=== PATIENT | male | born 1975 | race Caucasian/White ===

== ENCOUNTER 2016-07-13 20:21 | Emergency (ER) | payer OTHER ==
[~2016-07-13] VITALS: Ht 165.1 cm; Wt 56.0 kg
[2016-07-13 20:23] VITALS: Ht 165.1 cm; Wt 56.0 kg
[2016-07-13] MEDS ORDERED: ONDANSETRON 4 MG INJ IV STA (21:36)
[2016-07-13] MEDS ORDERED: ACETAMINOPHEN 500 MG TAB PO STA (21:36)
[2016-07-13] MEDS ORDERED: morphine 2 MG INJ IV STA (21:36)
[2016-07-13] MEDS ORDERED: SOD CHLORIDE 0.9% 1,000 ML IV STA (21:36)
[2016-07-13] MEDS ORDERED: TRUV PO (22:11)
[2016-07-13] MEDS ORDERED: NORV100 PO (22:11)
--- NOTE | 2016-07-13 22:12 | ERD ---
ER Documentation Chief Complaint Date/Time DATE: 07/13/16 TIME: 22:10 Chief Complaint abd pain x 2 days HPI 40-year-old male presents to emergency department for complaints of right sided abdominal pain started 2 days ago. Patient is complaining of right sided abdominal pain, sharp pain, 6/10 scale, accompanied with nausea and vomiting. Patient denies any diarrhea or constipation. Patient denies any blood in his or blood in the vomit. Patient denies any black stool. Patient denies hematuria or dysuria. Patient is complaining of fever today. Patient denies any sick contacts. Patient did not take any medications to help with symptoms. Patient has history of HIV. ROS All systems reviewed and are negative except as per history of present illness. Medications Home Meds Active Scripts Ondansetron (Ondansetron Odt) 4 Mg Tab.rapdis, 4 MG PO Q8 Y for NAUSEA AND/OR VOMITING, #30 TAB Prov:BRYNN ABREU [employer] 07/14/16 Ondansetron (Ondansetron Odt) 4 Mg Tab.rapdis, 4 MG PO Q8 Y for NAUSEA AND/OR VOMITING, #30 TAB Prov:BRYNN ABREU [employer] 07/14/16 Ciprofloxacin Hcl* (Ciprofloxacin Hcl*) 500 Mg Tablet, 500 MG PO BID for 10 Days , TAB Prov:BRYNN ABREU NP 07/14/16 Tamsulosin Hcl* (Flomax*) 0.4 Mg Cap.er.24h, 0.4 MG PO QPM, #30 CAP Prov:BRYNN ABREU NP 07/14/16 Hydrocodone/Acetaminophen ([place] 5-325 Tablet) 1 Each Tablet, 1 TAB PO Q6H Y for SEVERE PAIN LEVEL 7-10, #20 TAB Prov:BRYNN ABREU [employer] 07/14/16 Reported Medications Emtricitabine-Tenofovir* (Truvada*) Unknown Strength Tab, PO DAILY, TAB 07/13/16 Ritonavir* (Norvir*) Unknown Strength Capsule, PO DAILY, CAP 07/13/16 Allergies Allergies: Coded Allergies: No Known Drug Allergies (Verified Allergy, Unknown, 07/13/16) PMhx/Soc History of Surgery: Yes (RT ARM) Anesthesia Reaction: No Hx Neurological Disorder: No Hx Respiratory Disorders: No Hx Cardiac Disorders: No Hx Psychiatric Problems: No Hx Miscellaneous Medical Probl: Yes (HIV) Hx Alcohol Use: No Hx Substance Use: Yes (MARIJUANA) Hx Tobacco Use: No Smoking Status: Never smoker FmHx Family History: No coronary disease, No diabetes, No other Physical Exam Vitals Vital Signs Date Time Temp Pulse Resp B/P Pulse Ox O2 Delivery O2 Flow Rate FiO2 07/14/16 02:13 98.1 89 16 105/64 100 Room Air 07/13/16 20:23 100.7 130 20 113/74 98 Physical Exam GENERAL: The patient is well developed and appropriate for usual state of health, in no apparent distress. CHEST: Clear to auscultation bilaterally. There are no rales, wheezes or rhonchi. HEART: Regular rate and rhythm. No murmurs, clicks, rubs or gallops. No S3 or S4. ABDOMEN: Soft, right-sided abdominal tenderness noted. Good bowel sounds. No rebound or guarding. No gross peritonitis. No gross organomegaly or masses. BACK: No midline or flank tenderness. EXTREMITIES: Equal pulses bilaterally. There is no peripheral clubbing, cyanosis or edema. No focal swelling or erythema. Full range of motion. Grossly neurovascularly intact. NEURO: Alert and oriented. Cranial nerves 2-12 intact. Motor strength in all 4 extremities with 5/5 strength. Sensation grossly intact. Normal speech and gait. SKIN: There is no apparent rash or petechia. The skin is warm and dry. HEMATOLOGIC AND LYMPHATIC: There is no evidence of excessive bruising or lymphedema. No gross cervical, axillary, or inguinal lymphadenopathy. Result Diagram: 07/13/16221707/13/162217 Results 24 hrs Laboratory Tests Test 07/13/16 00:18 07/13/16 22:18 Urine Bacteria OCCASIONAL Urine Bilirubin NEGATIVE Urine Calcium Oxalate Crystals OCCASIONAL Urine Clarity SLIGHTLY CLOUDY Urine Color YELLOW Urine Glucose NEGATIVE% Urine Hemoglobin 3+ Urine Ketones NEGATIVE Urine Leukocyte Esterase 1+ Urine Microscopic RBC >200/HPF Urine Microscopic WBC 25-50/HPF Urine Nitrite NEGATIVE Urine Specific [place] >=1.030 Urine Squamous Epithelial Cells FEW Urine Total Protein TRACE Urine Urobilinogen 1.0 E.U./dL Urine pH 6.0 Alanine Aminotransferase (ALT/SGPT) 29IU/L Albumin 3.4g/dl Albumin/Globulin Ratio 0.69 Alkaline Phosphatase 160IU/L Anion Gap 15 Aspartate Amino Transf (AST/SGOT) 29IU/L Basophils # 0.010^3/ul Basophils % 0.4% Blood Urea Nitrogen 13mg/dl Calcium Level 9.1mg/dl Carbon Dioxide Level 30mmol/L Chloride Level 102mmol/L Creatinine 0.85mg/dl Direct Bilirubin 0.00mg/dl Eosinophils # 0.210^3/ul Eosinophils % 3.6% Globulin 4.90g/dl Glucose Level 111mg/dl Hematocrit 41.2% Hemoglobin 13.8g/dl Indirect Bilirubin 0.2mg/dl Lipase 109U/L Lymphocytes # 1.210^3/ul Lymphocytes % 24.1% Mean Corpuscular Hemoglobin 29.6pg Mean Corpuscular Hemoglobin Concent 33.5g/dl Mean Corpuscular Volume 88.4fl Mean Platelet Volume 9.3fl Monocytes # 0.610^3/ul Monocytes % 12.3% Neutrophils # 2.810^3/ul Neutrophils % 59.4% Nucleated Red Blood Cells # 0.010^3/ul Nucleated Red Blood Cells % 0.0/100WBC Platelet Count 23842^3/UL Potassium Level 3.9mmol/L Red Blood Count 4.6610^6/ul Red Cell Distribution Width 13.2% Sodium Level 143mmol/L Total Bilirubin 0.2mg/dl Total Protein 8.3g/dl White Blood Count 4.810^3/ul Current Medications Medications (Trade) Dose Ordered Sig/Mayelin Route PRN Reason Start Time Stop Time Status Last Admin Dose Admin Sodium Chloride (NS) 1,000 ml @ 1,000 mls/hr Q1H STAT IV 07/13/16 21:36 07/13/16 22:35 DC 07/13/16 22:40 Morphine Sulfate (morphine) 2 mg ONCE STAT IV 07/13/16 21:36 07/13/16 21:37 DC 07/13/16 22:42 Ondansetron HCl (Zofran Inj) 4 mg ONCE STAT IV 07/13/16 21:36 07/13/16 21:37 DC 07/13/16 22:41 Acetaminophen 500 mg 500 mg ONCE STAT PO 07/13/16 21:36 07/13/16 21:37 DC 07/13/16 22:41 Ceftriaxone Sodium (Rocephin) 50 ml @ 100 mls/hr ONCE ONCE IVPB 07/14/16 01:30 07/14/16 01:59 DC 07/14/16 01:58 Normal saline IV bolus was given here in emergency department for rehydration, patient tolerated IV fluids.Patient was given medication for pain here in emergency department, after treatment, patient verbalized feeling much better. Patient's pain is improved. Patient was given Zofran here in the emergency department. After treatment, patient was able to tolerate po fluids here in the emergency department without any vomiting. There is no signs and symptoms of dehydration. PROCEDURE: CT Abdomen and Pelvis without contrast. CLINICAL INDICATION: Abdominal pain for 2 days. TECHNIQUE: A CT scan of the abdomen and pelvis was performed without intravenous contrast. Coronal and sagittal reformatted images were generated. Images were reviewed on a high-resolution PACS workstation. CTDIvol: 7.13 mGy. DLP: 346.83 mGy-cm. One or more of the following dose reduction techniques were used: - Automated exposure control. - Adjustment of the mA and/or kV according to patient size. - Use of iterative reconstruction technique. COMPARISON: None. FINDINGS: There is minimal scarring or atelectasis in the lingula. Evaluation of the abdominal and pelvic viscera is limited by the lack of oral and intravenous contrast. The liver is unremarkable. There are stones in the gallbladder. The common bile duct is not dilated. The spleen is not enlarged. No pancreatic lesion is identified and there is no pancreatic ductal dilatation. The adrenal glands are unremarkable. The kidneys are normal in size. There is mild to moderate right hydronephrosis secondary to a 5 mm obstructing stone in the proximal right ureter. Minimal right perinephric fat stranding is consistent with obstructive uropathy. No left hydronephrosis is seen. The small and large bowel are normal in caliber. There is no bowel wall thickening. The appendix is normal. The urinary bladder is unremarkable. The pelvic organs are within normal limits. No lymphadenopathy is identified. There is no ascites. No pneumoperitoneum is seen. There are no arterial calcifications. No suspicious osseous lesion is idenitified. IMPRESSION: 1. Mild to moderate right hydronephrosis secondary to a 5 mm obstructing stone in the proximal right ureter. 2. Normal appendix. 3. Cholelithiasis. RPTAT: HTAR .Akira Aguiar MD, MD Date Time Electronically viewed and signed by .Akira Aguiar MD, MD on 07/13/2016 22:40 .R/ CC: BRYNN ABREU [employer] Procedures/MDM Attending physician, Dr. Mccray, evaluated patient's laboratory test results, CT scan abdomen and pelvis results, he recommended outpatient treatment, IV Rocephin was given here in emergency department for treatment of pyelonephritis , patient was advised to see urology specialist, patient management for pyelonephritis is his recommendation at this time with strict return to the ER precautions. This was explained to the patient, verbalized understanding. Medical Decision Making: Patient's symptoms of pain was at his consistent with biliary colic, also be from hydronephrosis, renal colic from an obstructive stone. No symptoms of any septic stone. No renal insufficiency noted. Liver function tests are normal. LFTs is normal. No symptoms of choledocholithiasis. Patient has pyelonephritis which may be causing the fever, as per discussion with my attending physician, Dr. Mccray, since patient's vital signs are normal, no symptoms of any sepsis after treatment here in emergency department, patient management is appropriate at this time. Patient has HIV but is currently taking medication, patient appears well and is hemodynamically stable. Strict return to ER precautions was advised the patient for any worsening symptoms. There is low suspicion for abdominal emergencies at this time. Patients abdominal exam is normal at this time. Patients radiology exam does not show any abdominal emergencies at this time. There is low suspicion for appendicitis, cholecystitis, abdominal aortic aneurysms or peritonitis at this time. There is low suspicion for sepsis. Patient appears well and is hemodynamically stable. Disposition: Home. Condition: Stable Prescription [place], Zofran, Pyridium, tamsulosin, ciprofloxacin Instructions: Patient is advised to take medications as prescribed. Patient is advised to rest, increase fluid intake and do see urology specialist, take medications as prescribed.. Patient is advised that if symptoms are worse, severe abdominal pain, uncontrolled vomiting, high fever, severe flank pain, worst signs and symptoms, to return to the emergency department immediately. Otherwise, patient can follow up with primary care doctor in 5-7 days. Departure Diagnosis: Primary Impression: Renal colic on right side Additional Impressions: Biliary colic Pyelonephritis Condition: Stable Patient Instructions: Biliary Colic With Gallstone (Confirmed), Kidney Stone W / Colic, Pyelonephritis Additional Instructions: Patient is advised to take medications as prescribed. Patient is advised to rest , increase fluid intake and do see urology specialist, take medications as prescribed.. Patient is advised that if symptoms are worse, severe abdominal pain, uncontrolled vomiting, high fever, severe flank pain, worst signs and symptoms, to return to the emergency department immediately. Otherwise, patient can follow up with primary care doctor in 5-7 days. BRYNN ABREU NP Jul 13, 2016 22:12
[2016-07-13 22:28] LABS: ADD SCAN DIFF NO
[2016-07-13 22:32] LABS: BASOPHILS % 0.4 % (0.0-2.0); EOSINOPHILS # 0.2 10^3/ul (0.0-0.5); EOSINOPHILS % 3.6 % (0.0-7.0); HEMATOCRIT 41.2 % (42.0-52.0); HEMOGLOBIN 13.8 g/dl (14.0-18.0); LYMPHOCYTES # 1.2 10^3/ul (0.8-2.9); LYMPHOCYTES % 24.1 % (15.0-51.0); MEAN CORPUSCULAR HEMOGLOBIN 29.6 pg (29.0-33.0); MEAN CORPUSCULAR HGB CONC 33.5 g/dl (32.0-37.0); MEAN CORPUSCULAR VOLUME 88.4 fl (82.0-101.0); MEAN PLATELET VOLUME 9.3 fl (7.4-10.4); MONOCYTE # 0.6 10^3/ul (0.3-0.9); MONOCYTES % 12.3 % (0.0-11.0); NEUTROPHIL # 2.8 10^3/ul (1.6-7.5); NEUTROPHILS % 59.4 % (39.0-77.0); PLATELET COUNT 163 10^3/UL (140-415); RED BLOOD COUNT 4.66 10^6/ul (4.70-6.10); RED CELL DISTRIBUTION WIDTH 13.2 % (11.5-14.5); WHITE BLOOD COUNT 4.8 10^3/ul (4.8-10.8)
--- NOTE | 2016-07-13 22:40 | RADRPT ---
PROCEDURE: CT Abdomen and Pelvis without contrast. CLINICAL INDICATION: Abdominal pain for 2 days. TECHNIQUE: A CT scan of the abdomen and pelvis was performed without intravenous contrast. Owen l and sagittal reformatted images were generated. Images were reviewed on a high-resolution PACS wor kstation. CTDIvol: 7.13 mGy. DLP: 346.83 mGy-cm. One or more of the following dose reduction techniques were used: - Automated exposure control. - Adjustment of the mA and/or kV according to patient size. - Use of iterative reconstruction technique. COMPARISON: None. FINDINGS: There is minimal scarring or atelectasis in the lingula. Evaluation of the abdominal and pelvic viscera is limited by the lack of oral and intravenous contra st. The liver is unremarkable. There are stones in the gallbladder. The common bile duct is not dilated . The spleen is not enlarged. No pancreatic lesion is identified and there is no pancreatic ductal d ilatation. The adrenal glands are unremarkable. The kidneys are normal in size. There is mild to moderate right hydronephrosis secondary to a 5 mm o bstructing stone in the proximal right ureter. Minimal right perinephric fat stranding is consistent with obstructive uropathy. No left hydronephrosis is seen. The small and large bowel are normal in caliber. There is no bowel wall thickening. The appendix is normal. The urinary bladder is unremarkable. The pelvic organs are within normal limits. No lymphadenopathy is identified. There is no ascites. No pneumoperitoneum is seen. There are no art erial calcifications. No suspicious osseous lesion is idenitified. IMPRESSION: 1. Mild to moderate right hydronephrosis secondary to a 5 mm obstructing stone in the proximal righ t ureter. 2. Normal appendix. 3. Cholelithiasis. RPTAT: HTAR .Akira Aguiar MD, MD Date Time Electronically viewed and signed by .Akira Aguiar MD, on 07/13/2016 22:40 .R/
[2016-07-13 22:48] LABS: ALBUMIN 3.4 g/dl (3.3-4.9)
[2016-07-13 22:49] LABS: POTASSIUM 3.9 mmol/L (3.5-5.1)
[2016-07-13 22:51] LABS: ALBUMIN/GLOBULIN RATIO 0.69; BILIRUBIN,INDIRECT 0.2 mg/dl (0-1.1); BILIRUBIN,TOTAL 0.2 mg/dl (0.2-1.3); CREATININE 0.85 mg/dl (0.61-1.24); TOTAL PROTEIN 8.3 g/dl (6.1-8.1)
[2016-07-13 22:52] LABS: CALCIUM 9.1 mg/dl (8.4-10.2)
[2016-07-14 00:54] LABS: ADD UMIC YES; URINE BILIRUBIN (Dip) NEGATIVE (NEGATIVE); URINE BLOOD (Dip) 3+ (NEGATIVE); URINE COLOR YELLOW (YELLOW); URINE GLUCOSE (Dip) NEGATIVE (NEGATIVE); URINE KETONES (Dip) NEGATIVE (NEGATIVE); URINE LEUKOCYTE ESTERASE (Dip) 1+ (NEGATIVE); URINE NITRITE (Dip) NEGATIVE (NEGATIVE); URINE TOTAL PROTEIN (Dip) TRACE (NEGATIVE); URINE UROBILINOGEN (Dip) 1.0 E.U./dL (0.1-1.0)
[2016-07-14] MEDS ORDERED: CEFTRIAXONE 1 GM/50 ML (PMX) 50 ML IVPB ONE (01:30)
[2016-07-14] MEDS ORDERED: TAMS-14 PO (01:39)
[2016-07-14] MEDS ORDERED: ONDA4TAB14 PO (01:39)
[2016-07-14] MEDS ORDERED: HYDR-906 PO (01:39)
[2016-07-14] MEDS ORDERED: CIPR500T4 PO (01:39)
[2016-07-14 02:03] LABS: SQUAMOUS EPITHELIAL CELL,UR FEW; URINE RBCS >200 /HPF (0)
[2016-07-14 02:04] LABS: BACTERIA,URINE OCCASIONAL
[2016-07-14 02:13] VITALS: BP 105/64; PULSE 89; RESP 16; TEMP 98.1
== END 2016-07-14 02:33 | disposition home or self-care (01) ==
LOC: FTE 20:21
DX: N23 Unspecified renal colic (principal); K80.50 Calculus of bile duct without cholangitis or cholecystitis without obstruction; N12 Tubulo-interstitial nephritis, not specified as acute or chronic; R11.2 Nausea with vomiting, unspecified
CPT/HCPCS: 36415; 74176; 80053; 81001; 81003; 83690; 85025; 87086; 96374; 96375; J0696; J2270; J2405; J7030; Z7502; Z7610

== ENCOUNTER 2016-07-18 18:09 | Emergency (ER) | payer OTHER ==
[~2016-07-18] VITALS: Ht 165.1 cm; Wt 57.0 kg
[~2016-07-18 18:09] MED LIST: CIPR500T4 PO; HYDR-906 PO; NORV100 PO; ONDA4TAB14 PO; TAMS-14 PO; TRUV PO
[2016-07-18 18:15] VITALS: Ht 165.1 cm; Wt 57.0 kg
[2016-07-18] MEDS ORDERED: ONDANSETRON 4 MG INJ IV STA (18:30)
[2016-07-18] MEDS ORDERED: morphine 2 MG INJ IV STA (18:30)
[2016-07-18] MEDS ORDERED: SOD CHLORIDE 0.9% 1,000 ML IV STA (18:30)
--- NOTE | 2016-07-18 18:40 | ERD ---
ER Documentation Chief Complaint Date/Time DATE: 07/18/16 TIME: 18:38 Chief Complaint right flank pain x 6 hours. hx of kidney stone HPI 40-year-old male presents here in emergency department for complaints of right flank pain 6 hours prior to arrival. Patient was seen here 3 days ago, was diagnosed to have a obstructed stone, patient had pyelonephritis with it, the fever has resolved, patient denies any other symptoms. Patient denies any nausea or vomiting. Patient complains of pain, sharp pain, 8/10 scale, accompanying the symptoms. Patient denies any gross hematuria. Patient took some [place] for pain with only mild relief. Patient to call medications given to him. ROS All systems reviewed and are negative except as per history of present illness. Medications Home Meds Active Scripts Oxycodone HCl/Acetaminophen (Percocet 5-325 mg Tablet) 1 Each Tablet, 1 EACH PO Q6 Y for SEVERE PAIN LEVEL 7-10, #7 TAB Prov:BRYNN ABREU NP 07/18/16 Polyethylene Glycol* (Miralax*) 17 Gm Powd.pack, 17 GM PO DAILY, #7 Prov:BRYNN ABREU NP 07/18/16 Docusate Sodium* (Colace*) 100 Mg Capsule, 100 MG PO TID, #30 CAP Prov:BRYNN ABREU NP 07/18/16 Ondansetron (Ondansetron Odt) 4 Mg Tab.rapdis, 4 MG PO Q8 Y for NAUSEA AND/OR VOMITING, #30 TAB Prov:BRYNN ABREU NP 07/14/16 Ondansetron (Ondansetron Odt) 4 Mg Tab.rapdis, 4 MG PO Q8 Y for NAUSEA AND/OR VOMITING, #30 TAB Prov:BRYNN ABREU NP 07/14/16 Ciprofloxacin Hcl* (Ciprofloxacin Hcl*) 500 Mg Tablet, 500 MG PO BID for 10 Days , TAB Prov:BRYNN ABREU NP 07/14/16 Tamsulosin Hcl* (Flomax*) 0.4 Mg Cap.er.24h, 0.4 MG PO QPM, #30 CAP Prov:BRYNN ABREU NP 07/14/16 Hydrocodone/Acetaminophen ([place] 5-325 Tablet) 1 Each Tablet, 1 TAB PO Q6H Y for SEVERE PAIN LEVEL 7-10, #20 TAB Prov:BRYNN ABREU MENDIETA TNevaeh VILLEGAS 07/14/16 Reported Medications Emtricitabine-Tenofovir* (Truvada*) Unknown Strength Tab, PO DAILY, TAB 07/13/16 Ritonavir* (Norvir*) Unknown Strength Capsule, PO DAILY, CAP 07/13/16 Allergies Allergies: Coded Allergies: No Known Drug Allergies (Verified Allergy, Unknown, 07/18/16) PMhx/Soc History of Surgery: Yes (RT ARM) Anesthesia Reaction: No Hx Neurological Disorder: No Hx Respiratory Disorders: No Hx Cardiac Disorders: No Hx Psychiatric Problems: No Hx Miscellaneous Medical Probl: Yes (HIV) Hx Alcohol Use: No Hx Substance Use: Yes (MARIJUANA) Hx Tobacco Use: No FmHx Family History: No coronary disease, No diabetes, No other Physical Exam Vitals Vital Signs Date Time Temp Pulse Resp B/P Pulse Ox O2 Delivery O2 Flow Rate FiO2 07/18/16 18:15 97.9 81 20 124/73 100 Physical Exam GENERAL: The patient is well developed and appropriate for usual state of health, in no apparent distress. CHEST: Clear to auscultation bilaterally. There are no rales, wheezes or rhonchi. HEART: Regular rate and rhythm. No murmurs, clicks, rubs or gallops. No S3 or S4. ABDOMEN: Soft, nontender and nondistended. Good bowel sounds. No rebound or guarding. No gross peritonitis. No gross organomegaly or masses. No Trujillo sign or McBurney point tenderness. BACK: No midline or flank tenderness. EXTREMITIES: Equal pulses bilaterally. There is no peripheral clubbing, cyanosis or edema. No focal swelling or erythema. Full range of motion. Grossly neurovascularly intact. NEURO: Alert and oriented. Cranial nerves 2-12 intact. Motor strength in all 4 extremities with 5/5 strength. Sensation grossly intact. Normal speech and gait. SKIN: There is no apparent rash or petechia. The skin is warm and dry. HEMATOLOGIC AND LYMPHATIC: There is no evidence of excessive bruising or lymphedema. No gross cervical, axillary, or inguinal lymphadenopathy. Result Diagram: 07/18/16 1840 07/18/161844 Results 24 hrs Laboratory Tests Test 07/18/16 18:45 07/18/16 19:04 07/18/16 21:00 Alanine Aminotransferase (ALT/SGPT) 21IU/L Albumin 3.7g/dl Albumin/Globulin Ratio 0.71 Alkaline Phosphatase 162IU/L Anion Gap 18 Aspartate Amino Transf (AST/SGOT) 35IU/L Basophils # 0.010^3/ul Basophils % 0.4% Blood Urea Nitrogen 11mg/dl Calcium Level 9.3mg/dl Carbon Dioxide Level 25mmol/L Chloride Level 102mmol/L Creatinine 0.80mg/dl Direct Bilirubin 0.00mg/dl Eosinophils # 0.010^3/ul Eosinophils % 0.9% Globulin 5.20g/dl Glucose Level 129mg/dl Hematocrit 44.0% Hemoglobin 14.6g/dl Indirect Bilirubin 0.2mg/dl Lactic Acid Level 4.0mmol/L 1.4mmol/L Lipase 57U/L Lymphocytes # 0.810^3/ul Lymphocytes % 17.9% Mean Corpuscular Hemoglobin 29.3pg Mean Corpuscular Hemoglobin Concent 33.2g/dl Mean Corpuscular Volume 88.2fl Mean Platelet Volume 9.2fl Monocytes # 0.510^3/ul Monocytes % 10.3% Neutrophils # 3.210^3/ul Neutrophils % 70.3% Nucleated Red Blood Cells # 0.010^3/ul Nucleated Red Blood Cells % 0.0/100WBC Platelet Count 81162^3/UL Potassium Level 4.4mmol/L Red Blood Count 4.9910^6/ul Red Cell Distribution Width 13.2% Sodium Level 141mmol/L Total Bilirubin 0.2mg/dl Total Protein 8.9g/dl White Blood Count 4.510^3/ul Urine Amorphous Phosphates MODERATE Urine Bacteria FEW Urine Bilirubin NEGATIVE Urine Clarity SLIGHTLY CLOUDY Urine Color YELLOW Urine Glucose NEGATIVE% Urine Hemoglobin 3+ Urine Ketones NEGATIVE Urine Leukocyte Esterase NEGATIVE Urine Microscopic RBC >200/HPF Urine Microscopic WBC 2-5/HPF Urine Nitrite NEGATIVE Urine Specific [place] 1.025 Urine Squamous Epithelial Cells FEW Urine Total Protein NEGATIVE Urine Urobilinogen 1.0 E.U./dL Urine pH 8.0 Current Medications Medications (Trade) Dose Ordered Sig/Mayelin Route PRN Reason Start Time Stop Time Status Last Admin Dose Admin Sodium Chloride (NS) 1,000 ml @ 1,000 mls/hr Q1H STAT IV 07/18/16 18:30 07/18/16 19:29 DC 07/18/16 18:42 Morphine Sulfate (morphine) 2 mg ONCE STAT IV 07/18/16 18:30 07/18/16 18:31 DC 07/18/16 18:42 Ondansetron HCl 4 mg 4 mg ONCE STAT IV 07/18/16 18:30 07/18/16 18:31 DC 07/18/16 18:42 Sodium Chloride (NS) 2,000 ml @ 1,000 mls/hr Q2H ONCE IV 07/18/16 20:00 07/18/16 21:59 DC 07/18/16 20:07 Hydromorphone HCl (Dilaudid) 1 mg ONCE STAT IV 07/18/16 20:03 07/18/16 20:05 DC 07/18/16 20:09 Patient was given medication for pain here in emergency department, after treatment, patient verbalized feeling much better. Patient's pain is improved.Normal saline IV bolus was given here in emergency department for rehydration, patient tolerated IV fluids. PROCEDURE: CT Abdomen and Pelvis without contrast CLINICAL INDICATION: Right upper quadrant pain TECHNIQUE: Transaxial images were obtained through the abdomen and pelvis on a multi-slice scanner without the intravenous contrast administration. No oral contrast had previously been given. Sagittal and coronal re-formations were subsequently reconstructed. One or more of the following dose reduction techniques were used: - Automated exposure control. - Adjustment of the mA and/or kV according to patient size. - Use of iterative reconstruction technique. Radiation dose: CTDIvol = 7.13 mGy; DLP = 346.83 mGy-cm. COMPARISON: 07/13/2016 FINDINGS: Lung bases: The visualized lung bases appear unremarkable. Liver: Normal in size and in attenuation. There is no focal lesion. Gallbladder: There is cholelithiasis but the gallbladder wall is not thickened. Bile ducts: The intra and extrahepatic bile ducts are normal in caliber. Pancreas: Appears normal with no mass or inflammation evident. Spleen: Normal in size with no focal lesion. Adrenals: A 2.4 x 0.6 cm left adrenal nodule is identified measuring approximately 13 HU in density. Kidneys, ureters and bladder: A 9 x 6 x 5 mm ureterolith is seen in the distal right ureter approximately tissues 2.5 cm superior to the right ureterovesicular junction and is associated with moderate right hydronephrosis/ hydroureter. No ureterolith or mass is evident. The left kidney, the left ureter, and the bladder appear unremarkable. Reproductive organs: The prostate is not enlarged. Stomach and bowel: The stomach appears unremarkable. The bowel gas pattern reflects an ileus. Substantial stool seen in the colon but there is no evidence of bowel obstruction or inflammation. Appendix: The vermiform appendix is not discretely identified. Peritoneum: No free intraperitoneal fluid or air is identified. Aorta: Normal in caliber with no aneurysmal dilatation. IVC: Unremarkable. Lymph nodes: No pathologically enlarged nodes are identified. Osseous structures: The osseous elements appear intact. IMPRESSION: 1. 9 x 6 x 5 mm distal right ureterolith approximately 2.5 cm superior to the right ureterovesicular junction, associated with moderate right hydronephrosis/ hydroureter. The left kidney, left ureter, and the bladder appear unremarkable. 2. Ileus with abundant stool seen within the colon without evidence of bowel obstruction or inflammation. The vermiform appendix is not discretely identified. 3. Gallbladder distension with cholelithiasis, not associated with gallbladder wall thickening, bile duct dilatation or pancreatic pathology. 4. No free fluid is identified. Physician Rafita Date Time Electronically viewed and signed by Physician Rafita on 07/18/2016 19:58 RH/ CC: BRYNN ABREU VP & GENERAL COUNSEL The case with my attending physician, Dr. Jay, recommended a repeat lactic acid within 2 hours, this was done, also patient was given a fluid bolus here in emergency department, the lactic acid was 1.4, normal, admission unnecessary at this time. No symptoms of any sepsis, patient's left her test results does not show any sepsis, no leukocytosis no bandemia no fever, not tachycardic, patient appears well and is hemodynamically stable. Patient's symptoms most likely is consistent with renal colic. This case with my attending physician, , appropriate for discharge, with strict return to ER precautions for fever, tachycardia, any other worsening symptoms Procedures/MDM Medical Decision Making: Patient's symptoms consistent with renal colic. A repeat lactic acid was done within 2 hours after first draw, it was lower and normal, 1.4, patient is appropriate for discharge, other laboratory test results does not show any sepsis, urinalysis negative for any infection. No symptoms of any perinephric abscess. Patient's previous stone noted to be in the proximal ureter is now the ureterovesicular junction. There is low suspicion for abdominal emergencies at this time. Patients abdominal exam is normal at this time. Patients radiology exam does not show any abdominal emergencies at this time. There is low suspicion for appendicitis, cholecystitis , abdominal aortic aneurysms or peritonitis at this time. There is low suspicion for sepsis. Patient appears well and is hemodynamically stable. Disposition: Home. Condition: Stable Prescription Percocet, Colace and MiraLAX Instructions: Patient is advised to take medications as prescribed. Patient is advised to rest, increase fluid intake and do a urologist specialist. Patient is advised that if symptoms are worse, severe abdominal pain, uncontrolled vomiting, high fever, severe flank pain, worst signs and symptoms, to return to the emergency department immediately. Otherwise, patient can follow up with primary care doctor in 5-7 days. Departure Diagnosis: Primary Impression: Renal colic on right side Condition: Stable Additional Instructions: Patient is advised to take medications as prescribed. Patient is advised to rest, increase fluid intake and do a urologist specialist. Patient is advised that if symptoms are worse, severe abdominal pain, uncontrolled vomiting, high fever, severe flank pain, worst signs and symptoms, to return to the emergency department immediately. Otherwise, patient can follow up with primary care doctor in 5-7 days. BRYNN ABREU NP Jul 18, 2016 18:40
[2016-07-18 19:00] LABS: ADD SCAN DIFF NO
[2016-07-18 19:03] LABS: BASOPHILS % 0.4 % (0.0-2.0); EOSINOPHILS % 0.9 % (0.0-7.0); HEMOGLOBIN 14.6 g/dl (14.0-18.0); LYMPHOCYTES # 0.8 10^3/ul (0.8-2.9); LYMPHOCYTES % 17.9 % (15.0-51.0); MEAN CORPUSCULAR HEMOGLOBIN 29.3 pg (29.0-33.0); MEAN CORPUSCULAR HGB CONC 33.2 g/dl (32.0-37.0); MEAN CORPUSCULAR VOLUME 88.2 fl (82.0-101.0); MEAN PLATELET VOLUME 9.2 fl (7.4-10.4); MONOCYTE # 0.5 10^3/ul (0.3-0.9); MONOCYTES % 10.3 % (0.0-11.0); NEUTROPHIL # 3.2 10^3/ul (1.6-7.5); NEUTROPHILS % 70.3 % (39.0-77.0); PLATELET COUNT 181 10^3/UL (140-415); RED BLOOD COUNT 4.99 10^6/ul (4.70-6.10); RED CELL DISTRIBUTION WIDTH 13.2 % (11.5-14.5); WHITE BLOOD COUNT 4.5 10^3/ul (4.8-10.8)
[2016-07-18 19:12] LABS: ALBUMIN 3.7 g/dl (3.3-4.9)
[2016-07-18 19:13] LABS: POTASSIUM 4.4 mmol/L (3.5-5.1)
[2016-07-18 19:15] LABS: ALBUMIN/GLOBULIN RATIO 0.71; BILIRUBIN,INDIRECT 0.2 mg/dl (0-1.1); BILIRUBIN,TOTAL 0.2 mg/dl (0.2-1.3); CREATININE 0.8 mg/dl (0.61-1.24); TOTAL PROTEIN 8.9 g/dl (6.1-8.1)
[2016-07-18 19:16] LABS: CALCIUM 9.3 mg/dl (8.4-10.2)
[2016-07-18 19:22] LABS: ADD UMIC YES; URINE BILIRUBIN (Dip) NEGATIVE (NEGATIVE); URINE BLOOD (Dip) 3+ (NEGATIVE); URINE COLOR YELLOW (YELLOW); URINE GLUCOSE (Dip) NEGATIVE (NEGATIVE); URINE KETONES (Dip) NEGATIVE (NEGATIVE); URINE LEUKOCYTE ESTERASE (Dip) NEGATIVE (NEGATIVE); URINE NITRITE (Dip) NEGATIVE (NEGATIVE); URINE UROBILINOGEN (Dip) 1.0 E.U./dL (0.1-1.0)
[2016-07-18 19:29] LABS: URINE TOTAL PROTEIN (Dip) NEGATIVE (NEGATIVE)
[2016-07-18 19:33] LABS: URINE RBCS >200 /HPF (0)
[2016-07-18 19:34] LABS: SQUAMOUS EPITHELIAL CELL,UR FEW
[2016-07-18 19:35] LABS: BACTERIA,URINE FEW
--- NOTE | 2016-07-18 19:58 | RADRPT ---
PROCEDURE: CT Abdomen and Pelvis without contrast CLINICAL INDICATION: Right upper quadrant pain TECHNIQUE: Transaxial images were obtained through the abdomen and pelvis on a multi-slice scanner without the intravenous contrast administration. No oral contrast had previously been given. Sagit omar and coronal re-formations were subsequently reconstructed. One or more of the following dose reduction techniques were used: - Automated exposure control. - Adjustment of the mA and/or kV according to patient size. - Use of iterative reconstruction technique. Radiation dose: CTDIvol = 7.13 mGy; DLP = 346.83 mGy-cm. COMPARISON: 07/13/2016 FINDINGS: Lung bases: The visualized lung bases appear unremarkable. Liver: Normal in size and in attenuation. There is no focal lesion. Gallbladder: There is cholelithiasis but the gallbladder wall is not thickened. Bile ducts: The intra and extrahepatic bile ducts are normal in caliber. Pancreas: Appears normal with no mass or inflammation evident. Spleen: Normal in size with no focal lesion. Adrenals: A 2.4 x 0.6 cm left adrenal nodule is identified measuring approximately 13 HU in density. Kidneys, ureters and bladder: A 9 x 6 x 5 mm ureterolith is seen in the distal right ureter approxim ately tissues 2.5 cm superior to the right ureterovesicular junction and is associated with moderate right hydronephrosis/hydroureter. No ureterolith or mass is evident. The left kidney, the left ur eter, and the bladder appear unremarkable. Reproductive organs: The prostate is not enlarged. Stomach and bowel: The stomach appears unremarkable. The bowel gas pattern reflects an ileus. Subs tantial stool seen in the colon but there is no evidence of bowel obstruction or inflammation. Appendix: The vermiform appendix is not discretely identified. Peritoneum: No free intraperitoneal fluid or air is identified. Aorta: Normal in caliber with no aneurysmal dilatation. IVC: Unremarkable. Lymph nodes: No pathologically enlarged nodes are identified. Osseous structures: The osseous elements appear intact. IMPRESSION: 1. 9 x 6 x 5 mm distal right ureterolith approximately 2.5 cm superior to the right ureterovesicula r junction, associated with moderate right hydronephrosis/hydroureter. The left kidney, left ureter , and the bladder appear unremarkable. 2. Ileus with abundant stool seen within the colon without evidence of bowel obstruction or inflamm ation. The vermiform appendix is not discretely identified. 3. Gallbladder distension with cholelithiasis, not associated with gallbladder wall thickening, preston e duct dilatation or pancreatic pathology. 4. No free fluid is identified. Danyelle Perales Physician Date Time Electronically viewed and signed by Danyelle Perales Physician on 07/18/2016 19:58 RH/
[2016-07-18] MEDS ORDERED: SOD CHLORIDE 0.9% 2,000 ML IV ONE (20:00)
[2016-07-18] MEDS ORDERED: HYDROmorphONE 1 MG/ML SYG IV STA (20:03)
[2016-07-18] MEDS ORDERED: POLY17PO6 PO (22:07)
[2016-07-18] MEDS ORDERED: OXYC-279 PO (22:07)
[2016-07-18] MEDS ORDERED: DOCU-144 PO (22:07)
[2016-07-18 23:04] VITALS: BP 140/91; PULSE 88; RESP 16
== END 2016-07-18 23:22 | disposition home or self-care (01) ==
LOC: FTE 18:09
DX: N23 Unspecified renal colic (principal)
CPT/HCPCS: 36415; 74176; 80053; 81001; 83605; 83690; 85025; 87086; 96374; 96375; J1170; J2270; J2405; J7030; Z7502; 81003

== ENCOUNTER 2017-06-17 00:21 | Emergency (ER) | END 2017-06-17 04:29 | disposition left against medical advice (07) ==

== ENCOUNTER 2017-06-21 22:38 | Emergency (ER) | END 2017-06-22 01:44 | disposition left against medical advice (07) ==